=== PATIENT | female | born 1950 | race Caucasian/White ===

== ENCOUNTER → 2018-09-17 | Outpatient (CLI) | payer OTHER ==
[~2018-09-17] MED LIST: CONCERTA54 MG PO; DEXILANT60 MG PO; IOPAMIDOL 370 MG/ML 200 ML INFUS..BTL INJ ONE; LEVOTHYROXINE50 MCG PO; LIOTHYRONINE SO5 MCG PO; LOSARTAN POTASS25 MG PO; LOVENOX SQ; LOVENOX60 MG/0.6 SC; METHYLPHENIDATE10 MG PO; MULTIVITAMINS1 EAC7 PO; NEXIUM40 MG; SODIUM CHLORIDE 0.9% 50ML 50 ML ONE; SYNTHROID PO; TRULICITY SQ; VIIBRYD40 MG; WARFARIN SODIUM10 MG; [UNRECOGNIZED DRUG - OTHER]
[2018-09-17 10:50] LABS: BLOOD UREA NITROGEN 22 mg/dL (7-26); BUN/CREATININE RATIO 24 (6-25); EST GLOMERULAR FILTRATION RATE > 60 ML/MIN (60-)
--- NOTE | 2018-09-17 11:50 | Diagnostic Imaging Report ---
EXAM: CT Abdomen with contrast INDICATION: Extrinsic compression of stomach, constipation. COMPARISON: Report from CT chest on 02/01/2009 although images are not available for review. TECHNIQUE: The abdomen was scanned utilizing a multidetector helical scanner from the lung base to the iliac crests after administration of IV contrast. Coronal and sagittal reformations were obtained. Routine protocol was performed. Scan was performed when during portal venous phase. IV CONTRAST: 100 cc of ISovue 370 ORAL CONTRAST: Water COMPLICATIONS: None RADIATION DOSE: Total DLP: 471.7 mGy*cm CTDIvol has been reviewed. It is below the limits set by the Radiation Protocol Committee (RPC). FINDINGS: LINES and TUBES: None. LOWER THORAX: Coronary atherosclerosis. HEPATOBILIARY: Calcification within the left hepatic lobe which may reflect sequela of prior infection or trauma. Subcentimeter right hepatic lobe hypodensity is too small to characterize but likely represents a cyst. No biliary ductal dilation. GALLBLADDER: Cholelithiasis without sonographic evidence of cholecystitis. SPLEEN: No splenomegaly. Multiple subcentimeter splenic hypodensities are indeterminate but may represent cysts or hemangiomas. PANCREAS: No focal masses or ductal dilatation. ADRENALS: There is a 1.2 cm left adrenal nodule (19 HU; series 2, image 20), a 1 cm nodule at this location on CT chest on 02/01/2009 noted a lipid rich adrenal adenoma. KIDNEYS/URETERS: Moderate right and mild left hydronephrosis. No evidence of solid mass or stone. GI TRACT: No evidence of wall thickening or distension. The stomach appears unremarkable. Moderate amount of stool is seen in the partially visualized colon. LYMPH NODES: No lymphadenopathy. VESSELS: There are scattered atherosclerotic calcifications in the aorta and branch vessels. PERITONEUM / RETROPERITONEUM: No free air or fluid. BONES AND SOFT TISSUES: No acute osseous abnormality. No suspicious lytic or blastic lesion. Old healed right lower posterior rib fractures. CONCLUSION: No evidence of mass on abdominal CT. Moderate right and mild left hydronephrosis. Report from CT chest on 02/01/2009 noted suspected mild to moderate right hydronephrosis, although images are not available for review at the time of this dictation. This suggests the finding is chronic. A renal/bladder ultrasound may be considered for further evaluation. A 1.2 cm left adrenal nodule, which is indeterminate on this contrast enhanced study but was previously characterized on chest CT report from 02/01/2009 to represent lipid rich adrenal adenoma. Cholelithiasis without CT evidence of cholecystitis. Signed by: Dr. John Brown MD on 09/17/2018 11:47 AM
== END ==
LOC: CT 09:01
PROVIDERS: ATTEND Internal Medicine Gastroenterology
DX: K31.819 Angiodysplasia of stomach and duodenum without bleeding (principal); K80.20 Calculus of gallbladder without cholecystitis without obstruction; N13.30 Unspecified hydronephrosis
CPT/HCPCS: 36415; 74160; 82565; 84520; Q9967

== ENCOUNTER → 2018-09-25 | Outpatient (CLI) | payer OTHER ==
[~2018-09-25] MED LIST changes: -IOPAMIDOL 370 MG/ML 200 ML INFUS..BTL INJ ONE; -SODIUM CHLORIDE 0.9% 50ML 50 ML ONE
--- NOTE | 2018-09-25 14:47 | Diagnostic Imaging Report ---
EXAMINATION: Renal ultrasound. CLINICAL HISTORY :Extrinsic compression against the stomach. COMPARISON: CT September 17, 2018 TECHNIQUE: Grayscale and color Doppler evaluation of the kidneys and bladder was performed in transverse and longitudinal planes. DISCUSSION: RIGHT KIDNEY: The right kidney measures 12.1 cm in length and shows normal echogenicity. Cystic dilatation within the renal sinus versus collecting system dilatation. Of note, on the prior CT the calyces are not dilated. LEFT KIDNEY: The left kidney measures 12.5 cm in length and shows normal echogenicity. Cystic dilatation within the renal sinus versus collecting system dilatation. Of note, on the prior CT the calyces are not dilated. BLADDER: Unremarkable. IMPRESSION: Right greater than left renal sinus cysts versus collecting system dilatation. Signed by: Dr. Edward Marroquin M.D. on 09/25/2018 2:43 PM
== END ==
LOC: US 13:26
PROVIDERS: ATTEND Internal Medicine Gastroenterology
DX: K31.819 Angiodysplasia of stomach and duodenum without bleeding (principal); K80.20 Calculus of gallbladder without cholecystitis without obstruction; N13.30 Unspecified hydronephrosis
CPT/HCPCS: 76770; 76857

== ENCOUNTER → 2018-11-25 | Outpatient (CLI) | payer OTHER ==
[~2018-11-25] MED LIST changes: +FUROSEMIDE INJ 10 MG/ML 4 ML VIAL ONE
--- NOTE | 2018-11-25 11:26 | Diagnostic Imaging Report ---
Renal Scan with Lasix Washout Clinical information: Bilateral hydronephrosis; history of renal calculi Comparison: Renal ultrasound 09/25/2018; CT abdomen 09/17/2018 Technique: Following intravenous administration of 11 mCi of Tc-99m MAG3, dynamic images of the kidneys in the posterior projection were obtained through 40 minutes. Lasix 40 mg was administered intravenously at 10 minutes post injection of the tracer. Due to technical issue, images from 1-10 minutes post injection of tracer were not saved and are not available. Nonetheless, the study is interpretable. Report: Left kidney: Perfusion of the left kidney is prompt. The kidney has a normal reniform shape. Extraction of tracer from the blood pool is mild to moderately decreased. Clearance of tracer from the renal parenchyma is prolonged and is not complete by the end of the study. The pelvicalyceal system is mildly dilated. Some but very minimal pooling of tracer is seen within the pelvicalyceal system. Drainage of tracer from the pelvicalyceal system is prolonged due to insufficient renal function to fill the pelvicalyceal system to capacity prior to administration of Lasix. Drainage of tracer from the pelvicalyceal system, although prolonged, is adequate. Washout of tracer from the pelvicalyceal system following administration cannot be assessed due to lack of filling of the pelvicalyceal system to near capacity. Right kidney: Perfusion of the right kidney is prompt. The kidney has a normal reniform shape although is slightly smaller than the left kidney. Extraction of tracer from the blood pool is mild to moderately decreased. Clearance of tracer from the renal parenchyma is prolonged and is not complete by the end of the study. The pelvicalyceal system is mildly dilated. Some but very minimal pooling of tracer is seen within the pelvicalyceal system. Drainage of tracer from the pelvicalyceal system is prolonged due to insufficient renal function to fill the pelvicalyceal system to capacity prior to administration of Lasix. Drainage of tracer from the pelvicalyceal system, though prolonged, is adequate. Washout of tracer from the pelvicalyceal system following administration cannot be assessed due to lack of filling of the pelvicalyceal system to near capacity. No stasis of tracer is seen in the right ureter and the ureter does not appear dilated. Differential renal function: The left kidney contributes 54% of total renal function and the right kidney contributes 46% (normal 43-57%). Impression: 1. Significant medical renal disease is present in the left kidney versus impairment of tubular function due to longstanding obstruction of the pelvicalyceal system at the UPJ. The pelvicalyceal system appears mildly dilated but the function of the kidney is not sufficient to fill the system to near capacity. Physiologically significant obstruction at the UPJ is suspected but cannot be assessed by the Lasix washout method. 2. Significant medical renal disease is present in the right kidney versus impairment of tubular function due to longstanding obstruction of the pelvicalyceal system at the UPJ. The slightly lower differential renal function reflects the slightly smaller size of the right kidney compared to the left. The pelvicalyceal system appears mildly dilated but the function of the kidney is not sufficient to fill the system to near capacity. Physiologically significant obstruction at the UPJ is suspected but cannot be assessed by the Lasix washout method. Signed by: Dr. Shaista Johnson M.D. on 11/25/2018 11:23 AM
== END ==
LOC: NM 08:50
PROVIDERS: ATTEND Urology
DX: N13.1 Hydronephrosis with ureteral stricture, not elsewhere classified (principal)
CPT/HCPCS: 78708; A9562; J1940

== ENCOUNTER → 2020-02-13 | Day surgery (SDC) | payer OTHER ==
[2020-02-10 14:47] LABS: BASOPHILS # (AUTO) 0.1 (0.0-0.1); BASOPHILS % 0.9 % (0.0-1.0); EOSINOPHILS # (AUTO) 0.1 (0.0-0.4); HEMATOCRIT 39.4 % (34.2-44.1); HEMOGLOBIN 12.7 g/dL (12.0-16.0); LYMPHOCYTES # (AUTO) 1.4 (1.0-3.2); LYMPHOCYTES % 20.5 % (18.0-39.1); MEAN CORPUSCULAR HEMOGLOBIN 30.4 pg (28-32); MEAN CORPUSCULAR HGB CONC 32.2 g/dL (31-35); MEAN CORPUSCULAR VOLUME 94.3 fL (81-99); MONOCYTES # (AUTO) 0.6 (0.2-0.8); NEUTROPHILS # (AUTO) 4.8 (2.1-6.9); NEUTROPHILS % 68.5 % (38.7-80.0); PLATELET COUNT 255 x10e3/uL (140-360); RED BLOOD COUNT 4.18 x10e6/uL (3.6-5.1); RED CELL DISTRIBUTION WIDTH 12.9 % (11.7-14.4)
[~2020-02-13] MED LIST changes: +ALPHA LIPOIC A300 MG PO; +CHROMIUM PIC1000 MCG PO; +COLACE100 MG PO; +FENTANYL CITRATE/PF 100MCG/2 ML INJ ONE; -FUROSEMIDE INJ 10 MG/ML 4 ML VIAL ONE; +HAIR, SKIN AND1 EAC1 PO; +HYOSCYAMINE 0.125 MG TAB ONE; +KETAMINE HCL INJ 50 MG/ML 10 ML VIAL ONE; +LIDOCAINE HCL 2% LOCAL INJ 5 ML SDV VIAL INJ ONE; +MIDAZOLAM HCL 2 MG/2 ML VIAL ONE; +PROPOFOL IV EMULSION 10 MG/ML 20 ML VIAL ONE; +SYNTHROID137 MCG PO; +TRAZODONE HCL50 MG PO; +TRULICITY1.5 MG/0.5 SQ; +TURMERIC538 MG PO; +VITAMIN B-121000 MCG PO; +VITAMIN D3250 MCG PO; +XARELTO10 MG PO; +ZINC SULFATE220 M1 PO
[2020-02-13 13:45] VITALS: BP 112/68
--- NOTE | 2020-02-13 16:20 | Operative Report ---
DATE OF PROCEDURE: 02/13/2020 SURGEON: Joby Mckeon MD PROCEDURES: EGD with polypectomy and biopsies, and colonoscopy with polypectomy. INDICATIONS FOR EGD: Acid reflux. INDICATIONS FOR COLONOSCOPY: Surveillance colonoscopy, personal history of colon polyps. MEDICATIONS: The patient was done under MAC, please see anesthesiologist's note. PROCEDURE IN DETAIL: With the patient in left lateral decubitus position, a flexible fiberoptic Olympus gastroscope was introduced into the esophagus under direct visualization without any difficulty. The esophagus appeared to be within normal limits. A minute tongue of velvety red mucosa was noted to extend proximally from the GE junction, that was biopsied to rule out Melissa's. The scope was then advanced with ease into the stomach, traversing a small hiatal hernia. Mucosa overlying the antrum and the body revealed some patchy erythema and low-grade to moderate edema, and biopsies were obtained, sent to stain for H. pylori. Some hyperplastic-appearing polyps were noted in the body of the stomach and somewhat partially excised with the cold biopsy forceps. The pylorus was intubated with ease and the scope was advanced all the way to the second portion of the duodenum. The scope was then withdrawn slowly and biopsies were obtained from the proximal second portion and duodenal bulb to rule out sprue. The scope was then withdrawn back into the stomach and retroflexed mucosa overlying the fundus and cardia appeared to be within normal limits. The scope was then straightened out, it was subsequently withdrawn. The patient tolerated the procedure well. IMPRESSION: 1. Normal esophagus. 2. Rule out Melissa's esophagus. 3. Small hiatal hernia. 4. Gastritis, mild; biopsied, biopsies sent to stain for H. pylori. 5. Gastric polyps, body, some partially excised with cold biopsy forceps. 6. Rule out sprue. PLAN: 1. Follow up histology. 2. Continue Dexilant 60 mg one p.o. q.a.m. a.c. DESCRIPTION OF PROCEDURE: The patient was then turned around after adequate lubrication of the anal canal, a flexible fiberoptic Olympus colonoscope was inserted into the rectum with ease and advanced all the way to the cecum. A minute cecal polyp was removed per the cold biopsy forceps. Some scattered minimal diverticular disease was noted. The two polyps were removed per cold biopsy forceps from the transverse colon. The descending sigmoid and rectum grossly appeared to be within normal limits. The scope was then retroflexed into the distal rectum and small internal hemorrhoids were noted, none of which was actively bleeding. The scope was then straightened out, it was subsequently withdrawn. The patient tolerated the procedure well. IMPRESSION: 1. Cecal polyp, removed per cold biopsy forceps. 2. Transverse colon polyps x2, cold biopsied. 3. Diverticulosis. 4. Internal hemorrhoids, none actively bleeding. PLAN: 1. Follow up histology. 2. Initiate high-fiber, low-fat diet. 3. Initiate high-fiber supplement. Joby Mckeon MD [facility] [place]/[facility] /[id number] cc: Mert Ford
== END | disposition home or self-care (01) ==
LOC: OR 09:26
PROVIDERS: ATTEND Internal Medicine Gastroenterology
DX: K21.0 Gastro-esophageal reflux disease with esophagitis (principal); D12.3 Benign neoplasm of transverse colon; D12.0 Benign neoplasm of cecum; K57.30 Diverticulosis of large intestine without perforation or abscess without bleeding; K64.8 Other hemorrhoids; K44.9 Diaphragmatic hernia without obstruction or gangrene; K29.70 Gastritis, unspecified, without bleeding; Z86.010 Personal history of colon polyps; Z88.0 Allergy status to penicillin; E11.9 Type 2 diabetes mellitus without complications; E03.9 Hypothyroidism, unspecified; I10 Essential (primary) hypertension; K31.7 Polyp of stomach and duodenum; Z01.810 Encounter for preprocedural cardiovascular examination; Z01.812 Encounter for preprocedural laboratory examination; Z11.59 Encounter for screening for other viral diseases
CPT/HCPCS: 36415 ×2; 43239; 45380; 82948; 85025; 87635; 93005; J2001; J2250; J2704; J3010

== ENCOUNTER 2022-02-05 21:52 | Emergency (ER) | payer MEDICARE, OTHER ==
[~2022-02-05] VITALS: Ht 177.8 cm; Wt 81.6 kg
[~2022-02-05 21:52] MED LIST changes: +ATORVASTATIN CA20 MG PO; -FENTANYL CITRATE/PF 100MCG/2 ML INJ ONE; -HYOSCYAMINE 0.125 MG TAB ONE; -KETAMINE HCL INJ 50 MG/ML 10 ML VIAL ONE; -LIDOCAINE HCL 2% LOCAL INJ 5 ML SDV VIAL INJ ONE; -MIDAZOLAM HCL 2 MG/2 ML VIAL ONE; +OZEMPIC0.25 MG/0. SC; -PROPOFOL IV EMULSION 10 MG/ML 20 ML VIAL ONE
[2022-02-05] MEDS ORDERED: TETANUS/DIPHTHERIA TOX ADULT 0.5 ML SYR IM ONE (23:30)
[2022-02-06 01:24] VITALS: BP 132/71
== END 2022-02-06 01:25 | disposition home or self-care (01) ==
LOC: ER 22:00
DX: S00.83XA Contusion of other part of head, initial encounter (principal); S60.512A Abrasion of left hand, initial encounter; S60.511A Abrasion of right hand, initial encounter; S80.212A Abrasion, left knee, initial encounter; S80.211A Abrasion, right knee, initial encounter; W01.0XXA Fall on same level from slipping, tripping and stumbling without subsequent striking against object, initial encounter; Y93.01 Activity, walking, marching and hiking; Y92.89 Other specified places as the place of occurrence of the external cause; I10 Essential (primary) hypertension; R73.03 Prediabetes; Z86.718 Personal history of other venous thrombosis and embolism
CPT/HCPCS: 70450; 72125; 90471; 90714; 99283

== ENCOUNTER → 2022-02-07 | Day surgery (SDC) | payer OTHER ==
[2022-02-03 11:31] LABS: BASOPHILS # (AUTO) 0.1 (0.0-0.1); BASOPHILS % 1.2 % (0.0-1.0); EOSINOPHILS # (AUTO) 0.2 (0.0-0.4); EOSINOPHILS % 2.8 % (0.0-6.0); HEMATOCRIT 41.8 % (34.2-44.1); HEMOGLOBIN 13.1 g/dL (12.0-16.0); LYMPHOCYTES % 18.2 % (18.0-39.1); MEAN CORPUSCULAR HEMOGLOBIN 30.1 pg (28-32); MEAN CORPUSCULAR HGB CONC 31.3 g/dL (31-35); MEAN CORPUSCULAR VOLUME 96.1 fL (81-99); MONOCYTES # (AUTO) 0.5 (0.2-0.8); MONOCYTES % 9.5 % (4.4-11.3); NEUTROPHILS # (AUTO) 3.8 (2.1-6.9); NEUTROPHILS % 67.9 % (38.7-80.0); PLATELET COUNT 246 x10e3/uL (140-360); RED BLOOD COUNT 4.35 x10e6/uL (3.6-5.1); RED CELL DISTRIBUTION WIDTH 12.8 % (11.7-14.4)
[~2022-02-07] MED LIST changes: +FENTANYL CITRATE/PF 100MCG/2 ML INJ ONE; +GLUCAGON FOR INJ 1 MG VIAL ONE; +LABETALOL HCL 5 MG/ML 20ML VIAL ONE; +LIDOCAINE HCL 2% LOCAL INJ 5 ML SDV VIAL INJ ONE; +METOCLOPRAMIDE HCL 10 MG/2ML VIAL ONE; +MIDAZOLAM HCL 2 MG/2 ML VIAL ONE; +POVIDONE IODINE 0.05% 0.05 % ML PO ONE; +PROPOFOL IV EMULSION 10 MG/ML 20 ML VIAL ONE
[2022-02-07 15:51] VITALS: BP 113/61
== END | disposition home or self-care (01) ==
LOC: OR 11:24
PROVIDERS: ATTEND Internal Medicine Gastroenterology
DX: K21.9 Gastro-esophageal reflux disease without esophagitis (principal); D12.0 Benign neoplasm of cecum; K31.7 Polyp of stomach and duodenum; K29.50 Unspecified chronic gastritis without bleeding; K20.90 Esophagitis, unspecified without bleeding; K44.9 Diaphragmatic hernia without obstruction or gangrene; K57.30 Diverticulosis of large intestine without perforation or abscess without bleeding; K64.8 Other hemorrhoids; E11.9 Type 2 diabetes mellitus without complications; I10 Essential (primary) hypertension; I34.1 Nonrheumatic mitral (valve) prolapse; Z88.0 Allergy status to penicillin; Z01.810 Encounter for preprocedural cardiovascular examination; Z01.812 Encounter for preprocedural laboratory examination; Z20.822 Contact with and (suspected) exposure to COVID-19; Z79.84 Long term (current) use of oral hypoglycemic drugs; Z79.02 Long term (current) use of antithrombotics/antiplatelets; Z79.899 Other long term (current) drug therapy; Z86.718 Personal history of other venous thrombosis and embolism
CPT/HCPCS: 36415 ×2; 43239; 45380; 82948; 85025; 93005 ×2; C9113; J1610; J2001; J2250; J2704; J2765; J3010; J3490; U0002; 45384

== ENCOUNTER → 2024-11-20 | Day surgery (SDC) | payer MEDICARE ==
[2024-11-18 15:39] LABS: BASOPHILS # (AUTO) 0.1 (0.0-0.1); BASOPHILS % 1.2 % (0.0-1.0); EOSINOPHILS # (AUTO) 0.1 (0.0-0.4); EOSINOPHILS % 2.3 % (0.0-6.0); HEMOGLOBIN 11.9 g/dL (12.0-16.0); LYMPHOCYTES # (AUTO) 1.2 (1.0-3.2); LYMPHOCYTES % 23.1 % (18.0-39.1); MEAN CORPUSCULAR HGB CONC 33.1 g/dL (31-35); MEAN CORPUSCULAR VOLUME 93.8 fL (81-99); MONOCYTES # (AUTO) 0.4 (0.2-0.8); MONOCYTES % 8.5 % (4.4-11.3); NEUTROPHILS # (AUTO) 3.3 (2.1-6.9); NEUTROPHILS % 64.7 % (38.7-80.0); PLATELET COUNT 219 x10e3/uL (140-360); RED BLOOD COUNT 3.84 x10e6/uL (3.6-5.1); RED CELL DISTRIBUTION WIDTH 12.6 % (11.7-14.4); WHITE BLOOD COUNT 5.16 x10e3/uL (4.8-10.8)
[~2024-11-20] MED LIST changes: +DEXMEDETOMIDINE HCL 200 MCG/2 ML VIAL ONE; -GLUCAGON FOR INJ 1 MG VIAL ONE; +HYOSCYAMINE SULFATE 0.5 MG/ML INJ ONE; -LABETALOL HCL 5 MG/ML 20ML VIAL ONE; +METOPROLOL SUCC25 MG PO; -MIDAZOLAM HCL 2 MG/2 ML VIAL ONE; +MINOXIDIL2.5 MG PO; +MOUNJARO15 MG/0.5 SQ; +MULTAQ400 MG PO; -POVIDONE IODINE 0.05% 0.05 % ML PO ONE; +PROPOFOL IV EMULSION 50 ML IV ONE; +PROTONIX20 MG PO
[2024-11-20] MEDS: LACTATED RINGER'S 1,000 ML ONE (07:36)
[2024-11-20 09:48] VITALS: TEMP 97.3
[2024-11-20 10:10] VITALS: BP 119/62; PULSE 67; RESP 18; O2SAT 100
== END | disposition home or self-care (01) ==
LOC: OR 06:46
PROVIDERS: ATTEND Internal Medicine Gastroenterology
DX: K29.70 Gastritis, unspecified, without bleeding (principal); D12.2 Benign neoplasm of ascending colon; D12.3 Benign neoplasm of transverse colon; D3A.8 Other benign neuroendocrine tumors; K31.7 Polyp of stomach and duodenum; K22.2 Esophageal obstruction; K21.9 Gastro-esophageal reflux disease without esophagitis; K44.9 Diaphragmatic hernia without obstruction or gangrene; K31.89 Other diseases of stomach and duodenum; K57.30 Diverticulosis of large intestine without perforation or abscess without bleeding; K64.8 Other hemorrhoids; I10 Essential (primary) hypertension; I48.91 Unspecified atrial fibrillation; E78.5 Hyperlipidemia, unspecified; E03.9 Hypothyroidism, unspecified; Z88.0 Allergy status to penicillin; Z01.810 Encounter for preprocedural cardiovascular examination; Z01.812 Encounter for preprocedural laboratory examination; Z79.02 Long term (current) use of antithrombotics/antiplatelets; Z79.899 Other long term (current) drug therapy; Z86.718 Personal history of other venous thrombosis and embolism
CPT/HCPCS: 36415 ×2; 43239; 43251; 43450; 45385; 82948; 85025; 93005; J1980; J2003; J2470; J2704 ×2; J2765; J3010; J7121; 45378